=== PATIENT | male | born 1950 | race Caucasian/White ===

== ENCOUNTER 2021-12-25 15:27 | Emergency (ER) | payer OTHER ==
[2021-12-25 15:32] VITALS: BP 87/47; PULSE 78
[2021-12-25] MEDS ORDERED: traMADol 50 MG Tab PO ONE (17:11)
== END 2021-12-25 17:30 | disposition home health service (06) ==
LOC: SUPCPDRO 15:27 → LL.ED 15:27
DX: S72.002A Fracture of unspecified part of neck of left femur, initial encounter for closed fracture (principal); E11.40 Type 2 diabetes mellitus with diabetic neuropathy, unspecified; E03.9 Hypothyroidism, unspecified; Z79.82 Long term (current) use of aspirin; Z79.899 Other long term (current) drug therapy; W19.XXXA Unspecified fall, initial encounter
CPT/HCPCS: 93005; 93010; 99284; A9270-GY

== ENCOUNTER 2022-03-07 14:43 | Emergency (ER) | payer OTHER ==
[2022-03-07 14:50] VITALS: BP 97/54; PULSE 69
[2022-03-07 15:46] LABS: POTASSIUM,POC 4.5 mmol/L (3.5-4.5)
== END 2022-03-07 16:50 ==
LOC: LL.ED 14:43
DX: S72.002A Fracture of unspecified part of neck of left femur, initial encounter for closed fracture (principal); E11.40 Type 2 diabetes mellitus with diabetic neuropathy, unspecified; E03.9 Hypothyroidism, unspecified; Z79.4 Long term (current) use of insulin; Z79.899 Other long term (current) drug therapy; W19.XXXA Unspecified fall, initial encounter
CPT/HCPCS: 36415; 80047; 85025; 99283

== ENCOUNTER → 2022-04-11 | Emergency (ER) | payer OTHER ==
[2022-05-01 10:52] LABS: ANION GAP 6.4 meq/L (7-15); CHLORIDE,CL 103 mmol/L (98-107); ESTIMATED GFR 84 mL/min (>=60); SODIUM,NA 140 mmol/L (136-145)
== END ==
LOC: LL.ED 13:17
DX: R07.9 Chest pain, unspecified (principal)
CPT/HCPCS: 36415; 71045; 80053; 84484; 85025; 93010; 99285

== ENCOUNTER 2022-07-09 13:40 | Emergency (ER) | payer OTHER ==
[~2022-07-09 13:40] MED LIST: Sodium Chloride 0.9% 1,000 ML IV ONE; Sodium Chloride 0.9% 10 ML Syringe FLUSH PRN; cefTRIAXone 2 GM Vial IV ONE
[2022-07-09 14:30] LABS: ANION GAP 11.2 meq/L (7-15); CHLORIDE,CL 101 mmol/L (98-107); SODIUM,NA 139 mmol/L (136-145)
[2022-07-09 14:31] LABS: ESTIMATED GFR 41 mL/min (>=60)
[2022-07-09 14:40] LABS: CORONAVIRUS COVID-19 NAA NEGATIVE (NEGATIVE); RESPIRATORY SYNCYTIAL VIR NAA NEGATIVE (NEGATIVE)
[2022-07-09] MEDS ORDERED: Sodium Chloride 0.9% 1,000 ML IV ONE (15:19)
[2022-07-09] MEDS ORDERED: Insulin Regular, Human 100 Units/ML 3 ML Vial IV ONE (16:27)
[2022-07-09] MEDS ORDERED: 50% Dextrose in Water 50 ML Syringe IVPUSH PRN (16:27)
[2022-07-09] MEDS ORDERED: Glucagon,Human Recombinant 1 MG Vial IM PRN (16:27)
[2022-07-09] MEDS ORDERED: Sodium Chloride 0.9% 1,000 ML IV SCH (16:45)
[2022-07-09 17:58] LABS: ANION GAP 4.6 meq/L (7-15)
[2022-07-09 23:45] VITALS: PULSE 77
[2022-07-09 23:46] VITALS: BP 137/49
== END 2022-07-09 23:35 ==
LOC: LL.ED 13:40
DX: A41.9 Sepsis, unspecified organism (principal); N39.0 Urinary tract infection, site not specified; I10 Essential (primary) hypertension; E03.9 Hypothyroidism, unspecified; K21.9 Gastro-esophageal reflux disease without esophagitis; E11.9 Type 2 diabetes mellitus without complications; N40.0 Benign prostatic hyperplasia without lower urinary tract symptoms; F17.210 Nicotine dependence, cigarettes, uncomplicated; Z79.899 Other long term (current) drug therapy; Z20.822 Contact with and (suspected) exposure to COVID-19
CPT/HCPCS: 0241U; 36415; 71046; 80048; 80053; 81001; 82947; 83605; 85025; 87040; 87077; 87086; 87088; 87186; 93005; 96361; 96365; 96367; 99285-25; J0696; J1815-GY; J3370; J3490; J7030; J7050